=== PATIENT | female | born 1995 | race Caucasian/White ===

== ENCOUNTER 2025-02-04 23:01 | Emergency (ER) | payer MEDICAID ==
[~2025-02-04] VITALS: Ht 162.6 cm; Wt 59.0 kg
[2025-02-04 23:09] VITALS: TEMP 36.5; O2SAT 100
[2025-02-05 01:22] LABS: BASOPHILS % 0.5 % (0.0-2.0); EOSINOPHILS % 0.1 % (0.0-5.0); HEMATOCRIT. 39.2 % (36.0-48.0); HEMOGLOBIN. 13.0 g/dL (12.0-16.0); LYMPHOCYTES % 23.6 % (20.0-50.0); MEAN PLATELET VOLUME 8.0 fl (7.4-10.4); MONOCYTES % 3.5 % (2.0-8.0); NEUTROPHILS % 72.3 % (40.0-76.0); PLATELET 263 x1000/uL (130-400); RED BLOOD CELL COUNT 4.28 mill/uL (4.2-5.4); RED CELL DISTRIBUTION WIDTH 13.1 % (11.6-14.6)
[2025-02-05 01:41] LABS: CREATININE 0.7 mg/dL (0.6-1.0)
[2025-02-05 01:42] LABS: ETHANOL BLOOD 162 mg/dL (<10); UREA NITROGEN BLOOD 6 mg/dL (9-23)
[2025-02-05 01:43] LABS: ASPARTATE AMINOTRANSFERASE 14 IU/L (<34)
[2025-02-05 01:44] LABS: BILIRUBIN DIRECT < 0.1 mg/dL (<=3.0); BILIRUBIN TOTAL 0.4 mg/dL (0.1-1.0); PROTEIN TOTAL 7.3 g/dL (6.0-8.3)
[2025-02-05 02:17] LABS: HCG SCREEN NEGATIVE
[2025-02-05] MEDS: ONDANSETRON HCL 4MG/2ML INJ IV ONE (02:21)
[2025-02-05] MEDS: SODIUM CHLORIDE 0.9% 1,000 ML IV ONE (02:22)
[2025-02-05 03:46] LABS: CLARITY URINE CLEAR (CLEAR); COLOR URINE YELLOW (YELLOW); GLUCOSE URINE NEGATIVE (NEGATIVE); KETONES URINE NEGATIVE (NEGATIVE); LEUKOCYTE ESTERASE URINE NEGATIVE (NEGATIVE); NITRITE URINE NEGATIVE (NEGATIVE); OCCULT BLOOD URINE NEGATIVE (NEGATIVE); PH URINE 6.5 (4.5-8.0); PROTEIN URINE NEGATIVE (NEGATIVE); SPECIFIC GRAVITY URINE 1.006 (1.005-1.030); UROBILINOGEN URINE 0.2 E.U./dL (0.2-1.0)
[2025-02-05] MEDS: ONDANSETRON HCL 4MG/2ML INJ IV NR (04:08)
[2025-02-05] MEDS ORDERED: ONDA4TAB50 MT (05:27)
[2025-02-05 05:48] VITALS: BP 102/67; PULSE 80; RESP 18; O2SAT 100
== END 2025-02-05 06:03 | disposition home or self-care (01) ==
LOC: ER 23:01
DX: R42 Dizziness and giddiness (principal); R11.2 Nausea with vomiting, unspecified; M06.9 Rheumatoid arthritis, unspecified
CPT/HCPCS: 99285; 80076; 80048; 81003; 80320; 84703; 83690; 85025; 36415; 93005; 96361; 96374; 96376; J2405; J7030; G0480